=== PATIENT | female | born 1970 | race Caucasian/White ===

== ENCOUNTER → 2016-06-15 | Outpatient (CLI) | payer OTHER ==
[~2016-06-15] VITALS: Ht 160 cm; Wt 81.6 kg
[~2016-06-15] MED LIST: ADVAIR 500/501 DISK IH; AMBIEN CR12.5 MG PO; ASPIRIN EC325 M1 PO; ATENOLOL25 MG PO; ATORVASTATIN CA40 MG PO; BACLOFEN10 MG PO; BUSPAR30 MG PO; BUSPIRONE HCL15 MG PO; CYMBALTA20 MG PO; CYMBALTA60 MG PO; DITROPAN XL5 MG PO; DOXEPIN HCL25 MG PO; FENOFIBRATE PO; FENOFIBRATE145 M1 PO; GABAPENTIN300 MG PO; HYDROCHLOROTH12.5 M1 PO; KADIAN30 MG PO; LIORESAL10 MG PO; LYRICA150 MG PO; METROGEL-VAGINA70 GM VG; MORPHINE SULFAT15 MG PO; MS CONTIN,ORAMO15 M1 PO; OMEPRAZOLE20 MG PO; PERCOCET 5/31 TABLET PO; PROAIR HFA8.5 GM IH; PROPANOLOL PO; RANITIDINE HCL150 M1 PO; ROXICET 5-3251 EACH PO; SINGULAIR10 MG PO; TENORMIN50 MG PO; TIZANIDINE HCL2 M1 PO; ZOLPIDEM TARTRA10 MG PO
== END | disposition home or self-care (01) ==
LOC: AMB 09:00
PROC: 0DJ08ZZ Inspection of Upper Intestinal Tract, Via Natural or Artificial Opening Endoscopic (ICD-10-PCS; principal; 2016-06-15)
DX: R13.10 Dysphagia, unspecified (principal); R14.0 Abdominal distension (gaseous); K22.8 Other specified diseases of esophagus; R14.2 Eructation; G89.29 Other chronic pain; M54.9 Dorsalgia, unspecified; G47.33 Obstructive sleep apnea (adult) (pediatric); R73.03 Prediabetes; E78.5 Hyperlipidemia, unspecified; Z87.891 Personal history of nicotine dependence; Z82.49 Family history of ischemic heart disease and other diseases of the circulatory system; Z82.0 Family history of epilepsy and other diseases of the nervous system; Z83.3 Family history of diabetes mellitus; Z82.5 Family history of asthma and other chronic lower respiratory diseases; Z80.49 Family history of malignant neoplasm of other genital organs; Z88.1 Allergy status to other antibiotic agents; Z88.8 Allergy status to other drugs, medicaments and biological substances
CPT/HCPCS: 93005; J2250

== ENCOUNTER → 2016-07-10 | Outpatient (CLI) | payer OTHER | END | disposition home or self-care (01) | LOC: NUC 08:30 | DX: K31.84 Gastroparesis (principal) | CPT/HCPCS: 78264; A9541 ==